=== PATIENT | female | born 2000 | race Two or more races ===

== ENCOUNTER 2019-09-01 12:42 | Emergency (ER) | payer OTHER ==
[2019-09-01] MEDS ORDERED: ACETAMINOPHEN 325 MG TABLET PO ONE (13:38)
--- NOTE | 2019-09-01 13:38 | ER Document Report ---
ED GI/ - General Chief Complaint: Abdominal Pain Stated Complaint: ABDOMINAL PAIN Time Seen by Provider: 09/01/19 13:17 Primary Care Provider: OSVALDO KEENAN DO [Primary Care Provider] - Follow up as needed Mode of Arrival: Ambulatory Information source: Patient Notes: 18-year-old female who states that she is approximately 8 weeks presents to the emergency room complaining of lower pelvic pain and decreased appetite for the past 2 days. Pain worse today. She denies any vaginal bleeding or vaginal discharge. No urinary symptoms. No medications for her pain. 2 para 1, no current OB care. - Related Data Allergies/Adverse Reactions: No Known Allergies Allergy (Verified 09/01/19 14:26) Past Medical History - General Information source: Patient - Social History Smoking Status: Never Smoker Frequency of alcohol use: None Drug Abuse: None Lives with: Family Family History: Reviewed & Not Pertinent Review of Systems - Review of Systems Constitutional: No symptoms reported EENT: No symptoms reported Cardiovascular: No symptoms reported Respiratory: No symptoms reported Gastrointestinal: Abdominal pain, Nausea. denies: Vomiting Genitourinary: No symptoms reported Female Genitourinary: . denies: Vaginal discharge Musculoskeletal: No symptoms reported Skin: No symptoms reported Neurological/Psychological: No symptoms reported -: Yes All other systems reviewed and negative Physical Exam - Vital signs Vitals: Temp Pulse Resp BP Pulse Ox 99.2 F 77 16 110/55 L 98 09/01/19 13:06 09/01/19 13:06 09/01/19 13:06 09/01/19 13:06 09/01/19 13:06 - General General appearance: Appears well, Alert In distress: Mild - HEENT Head: Normocephalic, Atraumatic Eyes: Normal Pupils: PERRL - Respiratory Respiratory status: No respiratory distress Chest status: Nontender Breath sounds: Normal Chest palpation: Normal - Cardiovascular Rhythm: Regular Heart sounds: Normal auscultation Murmur: No - Abdominal Inspection: Normal Distension: No distension Bowel sounds: Normal Tenderness: Nontender. No: Guarding, Rebound Organomegaly: No organomegaly - Back Back: Normal, Nontender. No: CVA tenderness - Neurological Neuro grossly intact: Yes Cognition: Normal Orientation: AAOx4 [place] Coma Scale Eye Opening: Spontaneous [place] Coma Scale Verbal: Oriented [place] Coma Scale Motor: Obeys Commands [place] Coma Scale Total: 15 Speech: Normal Motor strength normal: LUE, RUE, LLE, RLE Sensory: Normal - Skin Skin Temperature: Warm Skin Moisture: Dry Skin Color: Normal Course - Re-evaluation Re-evalutation: 09/01/19 16:12 Patient is currently resting comfortably she is pain-free on exam. Reviewed ultrasound results with patient. Aware pending hCG quant. 09/01/19 16:16 All test results have resulted and have been discussed at length with patient. She was counseled she can take Tylenol as needed for pain. She is currently pain-free on exam. She is to follow-up outpatient with her HUMAN RESOURCES OPERATIONS COORDINATOR. She was given strict return to emergency room guidelines. Return for any new or worsening symptoms. All questions were answered. Patient verbalized understanding agrees with plan of care. - Vital Signs Vital signs: Temp Pulse Resp BP Pulse Ox 99.2 F 77 16 110/55 L 98 09/01/19 14:18 09/01/19 13:06 09/01/19 13:06 09/01/19 13:06 09/01/19 13:06 - Laboratory Result Diagrams: 09/01/19 14:19 09/01/19 14:19 Laboratory results interpreted by me: 09/01/19 09/01/19 14:19 14:49 Sodium 134.3 L Creatinine 0.47 L Beta HCG, Quant [id number] H Ur Leukocyte Esterase TRACE H - Diagnostic Test Radiology reviewed: Reports reviewed Discharge - Discharge Clinical Impression: Pelvic pain during Condition: Stable Disposition: HOME, SELF-CARE Instructions: Pelvic Pain in ([facility]) Additional Instructions: Patient was counseled to take Tylenol as needed for pain. Patient follow-up with HUMAN RESOURCES OPERATIONS COORDINATOR as discussed. Return for any new or worsening symptoms. Referrals: OSVALDO KEENAN DO [Primary Care Provider] - Follow up as needed ANAYA BARNES MD [ACTIVE STAFF] - Follow up as needed
[2019-09-01 14:32] LABS: ABSOLUTE BASOPHILS # (AUTO) 0.1 10^3/uL (0.0-0.2); ABSOLUTE EOSINOPHILS # (AUTO) 0.1 10^3/uL (0.0-0.6); ABSOLUTE LYMPHOCYTES (AUTO) 3.4 10^3/uL (0.5-4.7); ABSOLUTE MONOCYTES (AUTO) 0.8 10^3/uL (0.1-1.4); ABSOLUTE NEUT (AUTO) 5.8 10^3/uL (1.7-8.2); BASOPHILS % (AUTO) 0.5 % (0-2); EOSINOPHILS % (AUTO) 1.3 % (0-6); HEMATOCRIT 36.5 % (36.0-47.0); HEMOGLOBIN 12.9 g/dL (12.0-15.5); LYMPHOCYTES % (AUTO) 33.5 % (13-45); MEAN CORPUSCULAR HEMOGLOBIN 31.1 pg (27.0-33.4); MEAN CORPUSCULAR HGB CONC 35.2 g/dL (32.0-36.0); MEAN CORPUSCULAR VOLUME 88 fl (80-97); MONOCYTES % (AUTO) 8.2 % (3-13); PLATELET COUNT 224 10^3/uL (150-450); RED BLOOD COUNT 4.14 10^6/uL (3.72-5.28); RED CELL DISTRIBUTION WIDTH 12.6 % (11.5-14.0); SEGMENTED NEUTROPHILS % (AUTO) 56.5 % (42-78); TOTAL CELLS COUNTED % (AUTO) 100 %; WHITE BLOOD COUNT 10.2 10^3/uL (4.0-10.5)
[2019-09-01 14:53] LABS: ALBUMIN 4.4 g/dL (3.7-5.6); ALKALINE PHOSPHATASE 60 U/L (50-135); ANION GAP 6 (5-19); ASPARTATE AMINO TRANSFERASE 21 U/L (5-30); BILIRUBIN,TOTAL 1.1 mg/dL (0.2-1.3); BLOOD UREA NITROGEN 12 mg/dL (7-20); CALCIUM 9.5 mg/dL (8.4-10.2); CARBON DIOXIDE 26 mmol/L (22-30); CHLORIDE 102 mmol/L (98-107); GLUCOSE 96 mg/dL (75-110); POTASSIUM 4.3 mmol/L (3.6-5.0); TOTAL PROTEIN 7.2 g/dL (6.3-8.2)
[2019-09-01 15:11] LABS: AMORPHOUS SEDIMENT,URINE TRACE /HPF; APPEARANCE,URINE CLOUDY; BILIRUBIN,URINE NEGATIVE (NEGATIVE); COLOR,URINE YELLOW; GLUCOSE, URINE NEGATIVE (NEGATIVE); KETONES,URINE NEGATIVE (NEGATIVE); LEUKOCYTE ESTERASE,URINE TRACE (NEGATIVE); NITRITE,URINE NEGATIVE (NEGATIVE); PROTEIN,URINE NEGATIVE (NEGATIVE); UROBILINOGEN,URINE NEGATIVE mg/dL (<2.0)
--- NOTE | 2019-09-01 15:56 | RADIOLOGY REPORT (SQ) ---
EXAM DESCRIPTION: U/S OB TRANSVAG W/DOPPLER IMAGES COMPLETED DATE/TIME: 09/01/2019 3:14 pm REASON FOR STUDY: pelvic pain COMPARISON: None. TECHNIQUE: Endovaginal static and realtime grayscale images acquired of the pelvis. Additional selec clay spectral and color Doppler images recorded. All images stored on PACs. bHCG: Not available CLINICAL DATES: Last menses 06/30/2019 LIMITATIONS: None. FINDINGS: FETUS: Single Living intrauterine . ULTRASOUND EGA: 7 weeks 2 days ULTRASOUND MICHELLE: 04/17/2020 EFW: Not applicable less than 20 weeks. CRL: 1.1 cm FHR: 145 beats per minute. SURVEY: Too early to assess. AMNIOTIC FLUID: Adequate amount. PLACENTA: Not yet developed due to early gestation. SUBCHORIONIC BLEED: No. SIZE OF BLEED: Not applicable. UTERUS: No masses. No anomalies. Uterus is 9 x 8 x 5 cm in size CERVICAL LENGTH: 3 cm, Closed. RIGHT ADNEXA: Ovary not identified due to poor acoustical window. No adnexal free fluid. No adnexal masses. LEFT ADNEXA: Ovary not identified due to poor acoustical window. No adnexal free fluid. No adnexal masses. FREE FLUID: None. OTHER: No other significant finding. IMPRESSION: LIVING INTRAUTERINE . EGA 7 weeks 2 days Trimester of : First trimester - 0 to 13 weeks. TECHNICAL DOCUMENTATION: JOB ID: [id number] 2010 [employer]- All Rights Reserved rev-09/02 Reading location - IP/workstation name: [id number]
[2019-09-01 16:39] VITALS: BP 92/51
== END 2019-09-01 16:29 | disposition home or self-care (01) ==
LOC: ER 12:42
DX: O26.891 Other specified pregnancy related conditions, first trimester (principal); R10.2 Pelvic and perineal pain; R10.9 Unspecified abdominal pain; R63.0 Anorexia; R11.0 Nausea; Z3A.08 8 weeks gestation of pregnancy
CPT/HCPCS: 36415; 76817; 80053; 81001; 83690; 84702; 85025; 93976; 99284

== ENCOUNTER 2019-10-23 19:37 | Emergency (ER) | payer OTHER ==
--- NOTE | 2019-10-23 20:48 | ER Document Report ---
ED Medical Screen (RME) - General Chief Complaint: Abdominal Pain Stated Complaint: STOMACH PAIN/ Time Seen by Provider: 10/23/19 20:41 Primary Care Provider: OSVALDO KEENAN DO [Primary Care Provider] - Follow up as needed Mode of Arrival: Ambulatory Information source: Patient Notes: 19-year-old female presents to ED for complaint of pain all over her abdomen for 2 weeks off and on. She states she is 15 weeks . She is 2 para 1. She has [id number] son at home. She is alert oriented respirations regular nonlabored speaking in full sentences. She does not smoke drink or use any illicit drugs. She does have a medical history of anemia. I will order blood urine and a ultrasound. I have greeted and performed a rapid initial assessment of this patient. A comprehensive ED assessment and evaluation of the patient, analysis of test results and completion of medical decision making process will be conducted by an additional ED providers. - Related Data Allergies/Adverse Reactions: No Known Allergies Allergy (Verified 10/23/19 20:27) Home Medications: PRE-NATALS Past Medical History - Social History Frequency of alcohol use: None Drug Abuse: None Physical Exam - Vital signs Vitals: Temp Pulse Resp BP Pulse Ox 98.6 F 77 16 94/61 L 100 10/23/19 19:44 10/23/19 19:44 10/23/19 19:44 10/23/19 19:44 10/23/19 19:44 Course - Vital Signs Vital signs: Temp Pulse Resp BP Pulse Ox 98.6 F 77 16 94/61 L 100 10/23/19 20:43 10/23/19 19:44 10/23/19 19:44 10/23/19 19:44 10/23/19 19:44 Doctor's Discharge - Discharge Referrals: OSVALDO KEENAN DO [Primary Care Provider] - Follow up as needed
[2019-10-23 21:21] LABS: ABSOLUTE EOSINOPHILS # (AUTO) 0.5 10^3/uL (0.0-0.6); ABSOLUTE LYMPHOCYTES (AUTO) 3.4 10^3/uL (0.5-4.7); ABSOLUTE MONOCYTES (AUTO) 0.7 10^3/uL (0.1-1.4); ABSOLUTE NEUT (AUTO) 6.3 10^3/uL (1.7-8.2); AMORPHOUS SEDIMENT,URINE TRACE /HPF; APPEARANCE,URINE CLOUDY; BASOPHILS % (AUTO) 0.4 % (0-2); BILIRUBIN,URINE NEGATIVE (NEGATIVE); COLOR,URINE YELLOW; EOSINOPHILS % (AUTO) 4.1 % (0-6); GLUCOSE, URINE NEGATIVE (NEGATIVE); HEMATOCRIT 38.2 % (36.0-47.0); HEMOGLOBIN 13.3 g/dL (12.0-15.5); KETONES,URINE NEGATIVE (NEGATIVE); LEUKOCYTE ESTERASE,URINE TRACE (NEGATIVE); LYMPHOCYTES % (AUTO) 31.3 % (13-45); MEAN CORPUSCULAR HEMOGLOBIN 31.2 pg (27.0-33.4); MEAN CORPUSCULAR HGB CONC 34.7 g/dL (32.0-36.0); MEAN CORPUSCULAR VOLUME 90 fl (80-97); MONOCYTES % (AUTO) 6.6 % (3-13); NITRITE,URINE NEGATIVE (NEGATIVE); PLATELET COUNT 232 10^3/uL (150-450); PROTEIN,URINE NEGATIVE (NEGATIVE); RED BLOOD COUNT 4.25 10^6/uL (3.72-5.28); RED CELL DISTRIBUTION WIDTH 13.6 % (11.5-14.0); SEGMENTED NEUTROPHILS % (AUTO) 57.6 % (42-78); TOTAL CELLS COUNTED % (AUTO) 100 %; URINE SPECIFIC GRAVITY 1.017; UROBILINOGEN,URINE NEGATIVE mg/dL (<2.0); WHITE BLOOD COUNT 10.9 10^3/uL (4.0-10.5)
[2019-10-23 21:33] LABS: ALBUMIN 4.3 g/dL (3.5-5.0); ALKALINE PHOSPHATASE 59 U/L (38-126); ANION GAP 7 (5-19); ASPARTATE AMINO TRANSFERASE 21 U/L (14-36); BILIRUBIN,TOTAL 1.3 mg/dL (0.2-1.3); BLOOD UREA NITROGEN 10 mg/dL (7-20); CALCIUM 9.3 mg/dL (8.4-10.2); CARBON DIOXIDE 26 mmol/L (22-30); CHLORIDE 101 mmol/L (98-107); GLUCOSE 90 mg/dL (75-110); POTASSIUM 4.2 mmol/L (3.6-5.0); TOTAL PROTEIN 7.5 g/dL (6.3-8.2)
--- NOTE | 2019-10-23 21:40 | RADIOLOGY REPORT (SQ) ---
EXAM DESCRIPTION: Second/third trimester ultrasound. CLINICAL HISTORY: 19 years Female; Abdominal pain 15 weeks TECHNIQUE: Transabdominal obstetrical ultrasound was performed. COMPARISON: First trimester ultrasound 09/01/2019 FINDINGS: Number of fetuses: Single position: Variable Amniotic fluid: Largest pocket is 3.7 x 3.5 cm Cervix:Closed, 2.97 cm in length Placenta: Fundal. Grade 0. HR: 150 bpm Biometry: BPD: 2.86 cm, 15 weeks one day, 42nd percentile HC: 10.37 cm, 14 weeks six days, 19th percentile AC: 8.70 cm, 15 weeks zero days, 47th percentile FL: 1.68 cm, 15 weeks zero days, 37th percentile EFW: Two small to calculate HC/AC: 1.19 Composite Gestational Age: 15 weeks zero days. Estimated delivery date 04/15/2020. This correlates with the clinical age. IMPRESSION: Single viable IUP. No acute findings.
--- NOTE | 2019-10-23 22:44 | ER Document Report ---
ED General - General Chief Complaint: Abdominal Pain Stated Complaint: STOMACH PAIN/ Time Seen by Provider: 10/23/19 20:41 Primary Care Provider: OSVALDO KEENAN DO [NO LOCAL MD] - Follow up as needed Mode of Arrival: Ambulatory Notes: 19-year-old female presents emergency department complaining of periumbilical and mid abdominal pain for the past 2 weeks that worsens with sitting up but otherwise does not change with food or rolling over, bowel movements or urination. She denies any nausea or vomiting, admits somewhat increased constipation with small pebble-like stools. States that she did not have anything like this in her last . Patient is 15 weeks , she is a G2, P1. Denies vaginal discharge or bleeding. Denies any trauma to her abdomen. - Related Data Allergies/Adverse Reactions: No Known Allergies Allergy (Verified 10/23/19 20:27) Home Medications: PRE-NATALS Past Medical History - General Information source: Patient - Social History Smoking Status: Never Smoker Frequency of alcohol use: None Drug Abuse: None Family History: Reviewed & Not Pertinent Patient has homicidal ideation: No Review of Systems - Review of Systems Constitutional: No symptoms reported EENT: No symptoms reported Cardiovascular: No symptoms reported Gastrointestinal: See HPI, Abdominal pain Genitourinary: No symptoms reported. denies: Burning, Dysuria, Discharge Female Genitourinary: See HPI, -: Yes All other systems reviewed and negative Physical Exam - Vital signs Vitals: Temp Pulse Resp BP Pulse Ox 98.6 F 77 16 94/61 L 100 10/23/19 19:44 10/23/19 19:44 10/23/19 19:44 10/23/19 19:44 10/23/19 19:44 Notes: Technically hypotensive but given her status and her body habitus I suspect this is her norm. - Notes Notes: GENERAL: Alert, interacts well. No acute distress. HEAD: Normocephalic, atraumatic EYES: Pupils equal, round and reactive to light, extraocular movements intact. ENT: Oral mucosa moist, tongue midline. NECK: Full range of motion, supple, trachea midline. LUNGS: Clear to auscultation bilaterally, no wheezes, rales or rhonchi, no respiratory distress. HEART: Regular rate and rhythm, no murmurs, gallops, rubs. ABDOMEN: Soft, nontender, gravid, a few cm below the umbilicus, appropriate for dates, bowel sounds present in all 4 quadrants. EXTREMITIES: Moves all 4 extremities spontaneously, no edema, radial and dorsalis pedis pulses 2/4 bilaterally. No cyanosis. NEUROLOGICAL: Alert and oriented x3, normal speech. PSYCH: Normal mood, normal affect. SKIN: Warm, Dry, normal turgor, no rashes or lesions noted. Course - Re-evaluation Re-evalutation: 10/23/19 22:44 CBC shows slight leukocytosis of 10.9, CMP shows slight low sodium 133.6, lipase is normal, urinalysis shows trace leukocyte esterase, 1 WBC, trace bacteria and 2 squamous epithelial cells, I do not think this is asymptomatic bacteriuria but rather contamination. No indication for antibiotics despite status. Obstetrics Ultrasound 10/23/19 20:49 IMPRESSION: Single viable IUP. No acute findings. Heart rate is 150 on the ultrasound. No indication of acute intra-abdominal pro cess causing this pain. Patient is encouraged to use MiraLAX as she is having increasing constipation. Follow-up with DOUBLING MACHINE OPERATOR as scheduled as an outpatient, if this pain recurs I did recommend trying to take Tums to see if it helps with any of the pain. Return for fevers, worsening pain, contractions, blood or vaginal discharge. Discharged home. - Vital Signs Vital signs: Temp Pulse Resp BP Pulse Ox 98.6 F 77 16 94/61 L 100 10/23/19 20:43 10/23/19 19:44 10/23/19 19:44 10/23/19 19:44 10/23/19 19:44 - Laboratory Result Diagrams: 10/23/19 20:55 10/23/19 20:55 Laboratory results interpreted by me: 10/23/19 10/23/19 10/23/19 20:55 20:55 20:55 WBC 10.9 H Sodium 133.6 L Beta HCG, Quant 98578.00 H Ur Leukocyte Esterase TRACE H Discharge - Discharge Clinical Impression: Abdominal pain affecting Condition: Stable Disposition: HOME, SELF-CARE Additional Instructions: Today your baby looks good, there is one baby, your 15 weeks along with, you are due on 04/15/2020. Seeing as you have had some increasing constipation I would recommend you try MiraLAX. Please dissolve 1 scoop of MiraLAX in a glass of water once a day to treat constipation. You may increase to twice a day if needed to create soft bowel movements and you may decrease to every other day if you develop diarrhea. As your pain is mid to upper abdominal it may be worth it to try chewing up to Tums the next time you have this mid to upper abdominal pain. If it improves your pain and start taking Pepcid 20 mg twice a day. If it does not change your pain then you do not need to try the Pepcid. Please return for fevers, worsening pain, change in pain, vaginal discharge or bloody discharge or any new or concerning symptoms. Referrals: OSVALDO KEENAN, [NO LOCAL MD] - Follow up as needed
[2019-10-23 23:01] VITALS: BP 98/64
== END 2019-10-23 23:06 | disposition home or self-care (01) ==
LOC: ER 19:37
DX: O26.892 Other specified pregnancy related conditions, second trimester (principal); R10.33 Periumbilical pain; R10.9 Unspecified abdominal pain; Z3A.15 15 weeks gestation of pregnancy
CPT/HCPCS: 36415; 76805; 80053; 81001; 83690; 84702; 85025; 99284